=== PATIENT | female | born 1955 | race Caucasian/White ===

== ENCOUNTER 2020-03-17 13:11 | Outpatient (CLI) | payer OTHER, SELFPAY ==
[2020-03-18 14:12] LABS: SARS-CoV-2 RNA PCR Negative
== END 2020-03-17 13:12 | disposition home or self-care (01) ==
PROVIDERS: PCP Family Medicine; Visit Provider Family Medicine
DX: Z20.828 Contact with and (suspected) exposure to other viral communicable diseases (principal)
CPT/HCPCS: 87635; C9803; U0003